=== PATIENT | female | born 1980 | race Caucasian/White ===

== ENCOUNTER 2016-12-14 20:40 | Emergency (ER) | payer OTHER ==
--- NOTE | ~2016-12-14 | EKG ---
PATIENT: OSCAR CHAND UNIT #: [id number] Ventricular Rate: 74 BPM Atrial Rate: 74 BPM P-R Interval: 136 ms QRS Duration: 68 ms Q-T Interval: 388 ms QTC Calculation(Bezet): 430 ms P [place]: 68 degrees Calculated R [place]: 28 degrees Calculated T [place]: 25 degrees Diagnosis Line: Normal sinus rhythm with sinus arrhythmia Diagnosis Line: Low voltage QRS Diagnosis Line: Borderline ECG Diagnosis Line: No previous ECGs available Diagnosis Line: Confirmed by ALPESH MCKNIGHT MD ([id number]) on Diagnosis Line: 12/16/2016 1:28:26 PM INTERPRETING MD: NAVID
--- NOTE | ~2016-12-14 | US106 ---
[facility] A Service of [facility] RADIOLOGY TEXT RESULTS PATIENT: OSCAR CHAND LOCATION: [facility] : 84 UNIT #: [id number] AGE: [address]: Pérez Amaya DO SEX: F ORDER DR: [id number] [facility] [address] [place], [place] [address] [id number] MR#: [id number] Acc #: [id number] NAME: OSCAR CHAND : 1980 SEX: F STUDY DATE/TIME: 12/14/2016 23:04 UNIT: [facility] ROOM: STUDY DESCRIPTION: US Preg Uterus Transvaginal Attending Physician: Pérez Amaya D.O. Ordering Physician: Pérez Amaya D.O. Primary Care Physician: Kaitlin Fallon M.D. MEDICAL IMAGING REPORT This report is preliminary unless electronic signature is present EXAM Pelvic ultrasound. INDICATIONS patient. Lower abdominal and pelvic cramping for the past several weeks. Quantitative beta HCG is not available at the time of the study. PROCEDURE Briscoe-scale and Doppler imaging of the pelvis via transvaginal approach. COMPARISON None. FINDINGS Uterus is anteverted. Uterus measures 6.2 x 7.4 x 4.1 cm. Gestational sac in the endometrial cavity with a yolk sac and pole. Gestational sac measures 4.4 x 2.2 x 1.5 cm. pole measures 1.2 cm consistent with gestational age of 7 weeks and 3 days. Heart rate 150 beats per minute. No identifiable complication. The ovaries are normal. IMPRESSION Single intrauterine with no identifiable complication. Estimated gestational age of 7 weeks and 3 days. Heart rate 150 beats per minute. Dictated by... Robin Gamez M.D. THIS IS AN ELECTRONICALLY VERIFIED REPORT Robin Gamez M.D. at 12/18/2016 7:22 AM EED/bd [facility] A Service of [facility] RADIOLOGY TEXT RESULTS PATIENT: OSCAR CHAND LOCATION: [facility] : 84 UNIT #: [id number] AGE: [address]: Pérez Amaya DO SEX: F ORDER DR: TD: 12/15/2016 08:43 JOB #: [id number] MEDICAL IMAGING REPORT Page 1 of 1 COPY
[~2016-12-14 20:40] MED LIST: CIPRO PO; NAPROXEN PO
[2016-12-14 21:18] LABS: URINE SOURCE CLEAN CATCH
[2016-12-14 21:57] LABS: URINE APPEARANCE CLOUDY; URINE BILIRUBIN NEG (NEG); URINE BLOOD TRACE (NEG); URINE COLOR YELLOW; URINE GLUCOSE NEG (NEG); URINE KETONE NEG (NEG); URINE LEUKOCYTE ESTERASE 1+ (NEG); URINE NITRATE NEG (NEG); URINE PROTEIN NEG (NEG); URINE SPECIFIC GRAVITY 1.022 (1.003-1.035); URINE UROBILINOGEN 0.2 MG/DL (NEG)
[2016-12-14 22:00] LABS: CULTURE INDICATED? YES; URINE BACTERIA AUWI 1+ (NEGATIVE); URINE SQUAMOUS EPITHELIAL CELL MOD /[HPF]
[2016-12-14 22:24] LABS: POC - CKMB 2.4 ng/mL (0.0-7.9); POC - TROPONIN <0.05 ng/mL (<=0.05)
[2016-12-14 22:31] LABS: BASOPHIL# 0.1 X10e3 (0-0.3); BASOPHIL% 0.7 % (0-2.5); DIFF IND NO; EOSINOPHIL% 0.5 % (0.0-7.0); HEMATOCRIT 38.5 % (35.0-45.0); HEMOGLOBIN 12.9 gm/dL (12.0-16.0); LYMPHOCYTE% 22.9 % (17.0-45.0); MEAN CELL VOLUME 91.5 FL (83-96); MEAN CORPUSCULAR HEMOGLOBIN 30.8 PG (28-34); MEAN CORPUSCULAR HGB CONC 33.6 g/dL (30-36); MONOCYTE# 0.5 X10e3 (0-1.0); MONOCYTE% 5.6 % (3.0-12.0); NEUTROPHIL% 70.3 % (40-75); PLATELET COUNT 189 X10e3 (140-420); RED CELL DISTRIBUTION WIDTH 12.1 % (11.0-15.5); WHITE BLOOD COUNT 8.6 X10e3 (4.0-10.5)
[2016-12-14 23:12] LABS: ALBUMIN SERUM 3.9 g/dL (3.5-5.0); BILIRUBIN,TOTAL 0.5 mg/dL (0.2-2.0); BUN/CREATININE RATIO 15.71; CALCIUM SERUM 9.2 mg/dL (8.4-10.2); CREATININE SERUM 0.7 mg/dL (0.6-1.4); POTASSIUM 4.4 mmol/L (3.5-5.1); PROTEIN TOTAL SERUM 6.9 g/dL (6.0-8.3)
== END 2016-12-15 01:19 | disposition home or self-care (01) ==
LOC: CED 20:40
PROVIDERS: Emergency Medicine
DX: O23.41 Unspecified infection of urinary tract in pregnancy, first trimester (principal)
CPT/HCPCS: 36415; 76817; 80053; 81003; 82553; 82947; 84484; 84702; 84703; 85025; 87086; 93005; 96360; 99284